=== PATIENT | female | born 1930 | race Caucasian/White ===

== ENCOUNTER 2018-12-30 11:18 | Emergency (ER) | payer MEDICARE ==
[~2018-12-30] VITALS: Ht 157.5 cm; Wt 40.3 kg
[~2018-12-30 11:18] MED LIST: ASPIR-TRIN325 MG OR; ASPIRIN EC81 MG PO; BONIVA150 MG OR; CALCIUM600 M1 OR; CARVEDILOL3.125 MG PO; CVS IRON45 MG OR; FLEXERIL OR; METO25TAB OR; METOPROLOL25 MG OR; PLAVIX75 MG OR; SIMVASTATIN40 MG OR; ULTRAM50 M1 PO; VITAMIN B OR; VITAMIN C1000 MG OR
[2018-12-30] MEDS ORDERED: TRAMADOL HCL50 MG PO (11:56)
[2018-12-30 12:29] LABS: HEMATOCRIT 36.6 % (37.0-47.0); HEMOGLOBIN 11.5 g/dl (12.0-16.0); IMMATURE GRANULOCYTES 0.4 % (0.0-5.0); MEAN CELL VOLUME 104.9 fL CALC (80.0-100.0); MEAN CORPUSCULAR HGB CONC 31.4 g/L CALC (32.0-36.0); NEUT# 4.36 thou/uL (2.00-7.15); RED BLOOD COUNT 3.49 mill/uL (4.20-5.60)
[2018-12-30 13:06] LABS: ALBUMIN 4.5 g/dL (3.2-5.0); ALKALINE PHOSPHATASE 46 u/l (38-126); ANION GAP 13 (6-22 (CALC)); BILIRUBIN, TOTAL 0.4 mg/dL (0.0-1.4); BUN 31 mg/dL (8-23); BUN/CREATININE RATIO 45 (12-20 (CALC)); CARBON DIOXIDE 31 mmol/l (22-30); CHLORIDE 100 mmol/l (95-108); CREATININE 0.7 mg/dL (0.5-1.0); GFR > 60 ML/MIN (>=60 (CALC)); GFR FOR AFR.AMER. > 60 ML/MIN (>=60 (CALC)); POTASSIUM 4.1 mmol/l (3.5-5.1); SGOT/AST 28 u/l (9-36); SODIUM 140 mmol/l (137-146); TOTAL PROTEIN 7.2 g/dL (6.3-8.2)
[2018-12-30] MEDS ORDERED: FLEXERIL5 M1 PO (13:56)
[2018-12-30] MEDS ORDERED: DICLOFENAC25 MG PO (13:56)
[2018-12-30 14:25] VITALS: BP 171/74
== END 2018-12-30 15:33 | disposition home or self-care (01) ==
LOC: ED 11:18
PROVIDERS: Emergency Medicine
DX: S29.012A Strain of muscle and tendon of back wall of thorax, initial encounter (principal); M81.0 Age-related osteoporosis without current pathological fracture; X50.3XXA Overexertion from repetitive movements, initial encounter; Y93.E2 Activity, laundry; Y92.009 Unspecified place in unspecified non-institutional (private) residence as the place of occurrence of the external cause; I25.2 Old myocardial infarction